=== PATIENT | male | born 1950 | race Caucasian/White ===

== ENCOUNTER 2016-09-18 21:12 | Emergency (ER) | payer OTHER ==
[~2016-09-18] VITALS: Ht 182.9 cm; Wt 82.0 kg
[2016-09-18 22:02] VITALS: BP 166/81; PULSE 86; RESP 16; TEMP 98.3; O2SAT 98
--- NOTE | 2016-09-18 22:17 | PD ---
HPI Chief Complaint: Psychiatric Symptoms Time Seen by Provider: 22:02 Travel History International Travel<30 days: No Contact w/Intl Traveler<30days: No Traveled to known affect area: No History of Present Illness HPI 66yo M with PMH of Parkinson's disease, DM, HTN, dementia from [facility] here for paranoid behavior. As per triage nurse, pt was brought here because pt has been wandering at [facility] and family wants psych evaluation. There are no further paper work from [facility] except for a face sheet. Pt states that he was looking for his nephew and that there was a police next to him and directed him to this hospital. States that he turned around and the police disappeared. Pt is AAOx2. Denies any complaints such as fever, chest pain, sob, n/v, abdominal pain, focal weakness or numbness. PFSH Past Medical History Dementia: Yes Diabetes: Yes Patient Takes Glucophage: No Parkinson's Disease: Yes Immunizations Current: Yes Tetanus Vaccination: Unknown Influenza Vaccination: No Social History Alcohol Use: No Tobacco Use: No Substance Use: No Allergies-Medications (Allergen,Severity, Reaction): Coded Allergies: No Known Allergies (Unverified , 09/18/16) Reported Meds & Prescriptions Reported Meds & Active Scripts Active Active Prescriptions or Reported Medications Unobtainable Review of Systems Except as stated in HPI: all other systems reviewed are Neg Physical Exam Narrative GENERAL: 66yo M not in distress. SKIN: Focused skin assessment warm/dry. HEAD: Atraumatic. Normocephalic. EYES: Pupils equal and round. No scleral icterus. No injection or drainage. ENT: No nasal bleeding or discharge. Mucous membranes pink and moist. NECK: Trachea midline. No JVD. CARDIOVASCULAR: Regular rate and rhythm. No murmur appreciated. RESPIRATORY: No accessory muscle use. Clear to auscultation. Breath sounds equal bilaterally. GASTROINTESTINAL: Abdomen soft, non-tender, nondistended. MUSCULOSKELETAL: No obvious deformities. No clubbing. No cyanosis. No edema. NEUROLOGICAL: Awake and alert. No obvious cranial nerve deficits. Motor grossly within normal limits. PSYCHIATRIC: Inappropriate mood and affect; poor insight and judgment. Data Data Last Documented VS Vital Signs Date Time Temp Pulse Resp B/P Pulse Ox O2 Delivery O2 Flow Rate FiO2 09/18/16 22:02 98.3 86 16 166/81 98 Orders Complete Blood Count With Diff (09/18/16 22:11) Comprehensive Metabolic Panel (09/18/16 22:11) Thyroid Stimulating Hormone (09/18/16 22:11) Psych Screen (09/18/16 22:11) Drug Screen, Random Urine (09/18/16 22:11) Ct Brain W/O Iv Contrast(Rout) (09/18/16 ) Thyroxine (T4) (09/18/16 22:25) Labs Laboratory Tests Test 09/18/16 22:25 Urine Opiates Screen NEG Urine Barbiturates Screen NEG Urine Amphetamines Screen NEG Urine Benzodiazepines Screen POS Urine Cocaine Screen NEG Urine Cannabinoids Screen NEG White Blood Count 6.1 TH/MM3 Red Blood Count 3.47 MIL/MM3 Hemoglobin 10.2 GM/DL Hematocrit 29.6 % Mean Corpuscular Volume 85.3 FL Mean Corpuscular Hemoglobin 29.3 PG Mean Corpuscular Hemoglobin 34.3 % Concent Red Cell Distribution Width 15.4 % Platelet Count 263 TH/MM3 Mean Platelet Volume 8.0 FL Neutrophils (%) (Auto) 72.5 % Lymphocytes (%) (Auto) 18.3 % Monocytes (%) (Auto) 7.6 % Eosinophils (%) (Auto) 0.7 % Basophils (%) (Auto) 0.9 % Neutrophils # (Auto) 4.4 TH/MM3 Lymphocytes # (Auto) 1.1 TH/MM3 Monocytes # (Auto) 0.5 TH/MM3 Eosinophils # (Auto) 0.0 TH/MM3 Basophils # (Auto) 0.1 TH/MM3 CBC Comment DIFF FINAL Differential Comment Sodium Level 144 MEQ/L Potassium Level 3.7 MEQ/L Chloride Level 108 MEQ/L Carbon Dioxide Level 30.5 MEQ/L Anion Gap 6 MEQ/L Blood Urea Nitrogen 5 MG/DL Creatinine 0.83 MG/DL Estimat Glomerular Filtration 92 ML/MIN Rate Random Glucose 90 MG/DL Calcium Level 8.6 MG/DL Total Bilirubin 0.6 MG/DL Aspartate Amino Transf 22 U/L (AST/SGOT) Alanine Aminotransferase 9 U/L (ALT/SGPT) Alkaline Phosphatase 165 U/L Total Protein 5.5 GM/DL Albumin 2.7 GM/DL Thyroxine (T4) 9.7 MCG/DL Thyroid Stimulating Hormone 6.190 uIU/ML 3rd Gen [facility] Medical Decision Making Medical Screen Exam Complete: Yes Emergency Medical Condition: Yes Differential Diagnosis Paranoid schizophrenia vs. delirium vs. dementia vs. electrolyte abnormality vs. dehydration Narrative Course 66yo M was brought in for evaluation from [facility]. There is a copy of discharge report from 09/02/16 from [facility] that has a list of diagnoses on that piece of paper. Diagnoses include Parkinson's disease, unspecified dementia without behavioral disturbance, hereditary and idiopathic neuropathy. Pt only states he has parkinsons and some tremors. Labs reviewed, no leukocytosis. H/H low at 10.2/29.6. Unknown baseline. TSH elevated but T4 normal. Alk phos elevated. This is the first time pt has been here so I obtain a CT brain because he seems bizarre. CT brain showed no acute intracranial abnormality. Chronic lacunar infarction involving the left thalamus. Utox positive benzo. VS stable. Pt has dementia and is here alone, states he wants to find his nephew. I am Garcia Acting him because I do not feel that he can leave on his own without psych evaluation. Diagnosis Primary Impression: Dementia Qualified Code: F03.91 - Dementia with behavioral disturbance, unspecified dementia type Scripts Unable to Obtain Active Prescriptions or Reported Meds Iman Rico DO September 18, 2016 22:17
[2016-09-18 22:52] LABS: AUTOMATED NEUTROPHIL # 4.4 TH/MM3 (1.8-7.7); BASOPHIL # 0.1 TH/MM3 (0-0.2); BASOPHIL % 0.9 % (0.0-2.0); EOSINOPHIL % 0.7 % (0.0-4.0); HEMATOCRIT 29.6 % (39.0-51.0); HEMO FLAGS DIFF FINAL; LYMPH % 18.3 % (9.0-44.0); LYMPHOCYTE # 1.1 TH/MM3 (1.0-4.8); MEAN CELL VOLUME 85.3 FL (80.0-100.0); MEAN CORPUSCULAR HEMOGLOBIN 29.3 PG (27.0-34.0); MEAN CORPUSCULAR HGB CONC 34.3 % (32.0-36.0); MONO % 7.6 % (0.0-8.0); NEUT % 72.5 % (16.0-70.0); PLATELET COUNT 263 TH/MM3 (150-450); RED BLOOD COUNT 3.47 MIL/MM3 (4.50-5.90); RED CELL DISTRIBUTION WIDTH 15.4 % (11.6-17.2); WHITE BLOOD COUNT 6.1 TH/MM3 (4.0-11.0)
--- NOTE | 2016-09-18 22:54 | RADRPT ---
EXAM DATE/TIME: 09/18/2016 22:43 [place] COMPARISON: No previous studies available for comparison. INDICATIONS : Altered mental status. RADIATION DOSE: 43.04 CTDIvol (mGy) MEDICAL HISTORY : Dementia. Parkinsons. Diabetes. SURGICAL HISTORY : None. ENCOUNTER: Initial ACUITY: 1 day PAIN SCALE: 0/10 LOCATION: cranial TECHNIQUE: Multiple contiguous axial images were obtained of the head. Using automated exposure control and adj ustment of the mA and/or kV according to patient size, radiation dose was kept as low as reasonably a chievable to obtain optimal diagnostic quality images. FINDINGS: CEREBRUM: Lacunar infarction is seen involving the left thalamus. The ventricles are normal for age. No eviden ce of midline shift, mass lesion, hemorrhage or acute infarction. No extra-axial fluid collections a re seen. POSTERIOR FOSSA: The cerebellum and brainstem are intact. The 4th ventricle is midline. The cerebellopontine angle i s unremarkable. EXTRACRANIAL: The visualized portion of the orbits is intact. SKULL: The calvaria is intact. No evidence of skull fracture. CONCLUSION: 1. No acute intracranial abnormality. 2. Chronic lacunar infarction involving the left thalamus. Andrés Schwab Jr., MD on September 18, 2016 at 22:50 Board Certified Radiologist. This report was verified electronically.
[2016-09-18 23:04] LABS: BARBITURATES, URINE NEG (NEG)
[2016-09-18 23:19] LABS: AMPHETAMINE, URINE NEG (NEG); COCAINE, URINE NEG (NEG)
[2016-09-18 23:38] LABS: ALKALINE PHOSPHATASE 165 U/L (45-117); ALT (GPT) 9 U/L (12-78); ANION GAP 6 MEQ/L (5-15); AST (GOT) 22 U/L (15-37); BICARBONATE 30.5 MEQ/L (21.0-32.0); BLOOD UREA NITROGEN 5 MG/DL (7-18); CHLORIDE 108 MEQ/L (98-107); GLOMERULAR FILTRATION RATE 92 ML/MIN (>89); POTASSIUM 3.7 MEQ/L (3.5-5.1); SODIUM (NA) 144 MEQ/L (136-145); TOTAL BILIRUBIN ADULT 0.6 MG/DL (0.2-1.0)
[2016-09-19 00:22] LABS: THYROXINE (T4) 9.7 MCG/DL (4.5-12.1)
[2016-09-19 03:13] VITALS: BP 190/85; PULSE 81; RESP 19; O2SAT 96
[2016-09-19 06:29] VITALS: BP 158/66; PULSE 64; RESP 19; O2SAT 97
[2016-09-19 11:21] VITALS: BP 154/82; PULSE 89; RESP 17; O2SAT 99
--- NOTE | 2016-09-19 14:06 | PD ---
History of Present Illness Chief Complaint: Psychiatric Symptoms Time Seen by Provider: 13:00 Travel History International Travel<30 Days: No Contact w/Intl Traveler<30days: No Known affected area: No Legal Status Legal Status: Garcia Act Garcia Act Signed By: Dorothy Garcia Act Comment: CERTIFICATE OF PROFESSIONAL INITIATEING INVOLUNTARY EXAMINATION09/19/16@0051 History of Present Illness: 66-year-old man with Parkinson's dementia Radha acted by [place] ED physician for wandering behavior and dementia. Garcia act also states that physician does not feel the patient can live on his own. The patient is apparently residing in [facility], an assisted living facility, named by the attending ED physician. He is not suicidal, homicidal, violent, oppositional, etc. He does have an obvious dementia which is felt to be moderate. He does continue to require care but obviously he has been receiving care at [facility]. The patient's nephew and niece were contacted and they want the patient to have a thorough evaluation. However, this physician does not feel the patient needs to be admitted for a thorough evaluation and recommended the niece and nephew take the patient to Dr. Lito Austin, local neurologist. This physician feels Mr. Joel is most likely baseline regarding his cognitive abilities and psychotropic medicine adjustment will not significantly alter his disease course. PFSH Past Medical History Dementia: Yes Diabetes: Yes Patient Takes Glucophage: No Parkinson's Disease: Yes Immunizations Current: Yes Tetanus Vaccination: Unknown Influenza Vaccination: No Psychiatric History Psychiatric History Hx Psychiatric Treatment: [facility] History of Inpatient Treatment: No Social History Hx Alcohol Use: No Hx Tobacco Use: No Hx Substance Use: No Hx of Substance Use Treatment: No Allergies-Medications (Allergen,Severity, Reaction): Coded Allergies: No Known Allergies (Unverified , 09/18/16) Reported Meds & Prescriptions Reported Meds & Active Scripts Active Active Prescriptions or Reported Medications Unobtainable Review of Systems ROS Limitations: Poor Historian Except as stated in HPI: all other systems reviewed are Neg Exam Exam Limitations: Poor Historian Alert: Yes [place]: Person Mood: Calm Affect: Restricted Speech: Slurred Eye Contact: Normal Memory Intact: Immediate Insight/Judgement Impaired but likely baseline. MDM Medical Decision Making Medical Record Reviewed: Yes Assessment/Plan Garcia act being lifted and patient being sent home. The patient is not suicidal or homicidal and does have people to help care for him. He can be evaluated and treated in a less restrictive environment, by a outpatient neurologist. Orders Complete Blood Count With Diff (09/18/16 22:11) Comprehensive Metabolic Panel (09/18/16 22:11) Thyroid Stimulating Hormone (09/18/16 22:11) Psych Screen (09/18/16 22:11) Drug Screen, Random Urine (09/18/16 22:11) Ct Brain W/O Iv Contrast(Rout) (09/18/16 ) Thyroxine (T4) (09/18/16 22:25) Diet Regular Basic (09/19/16 Breakfast) Diet Regular Basic (09/19/16 Lunch) Results Vital Signs Date Time Temp Pulse Resp B/P Pulse Ox O2 Delivery O2 Flow Rate FiO2 09/19/16 11:21 89 17 154/82 99 Room Air 09/19/16 06:29 64 19 158/66 97 Room Air 09/19/16 03:13 81 19 190/85 96 Room Air 09/18/16 22:02 98.3 86 16 166/81 98 Laboratory Tests Test 09/18/16 22:25 Urine Opiates Screen NEG Urine Barbiturates Screen NEG Urine Amphetamines Screen NEG Urine Benzodiazepines Screen POS Urine Cocaine Screen NEG Urine Cannabinoids Screen NEG White Blood Count 6.1 Red Blood Count 3.47 Hemoglobin 10.2 Hematocrit 29.6 Mean Corpuscular Volume 85.3 Mean Corpuscular Hemoglobin 29.3 Mean Corpuscular Hemoglobin 34.3 Concent Red Cell Distribution Width 15.4 Platelet Count 263 Mean Platelet Volume 8.0 Neutrophils (%) (Auto) 72.5 Lymphocytes (%) (Auto) 18.3 Monocytes (%) (Auto) 7.6 Eosinophils (%) (Auto) 0.7 Basophils (%) (Auto) 0.9 Neutrophils # (Auto) 4.4 Lymphocytes # (Auto) 1.1 Monocytes # (Auto) 0.5 Eosinophils # (Auto) 0.0 Basophils # (Auto) 0.1 CBC Comment DIFF FINAL Differential Comment Sodium Level 144 Potassium Level 3.7 Chloride Level 108 Carbon Dioxide Level 30.5 Anion Gap 6 Blood Urea Nitrogen 5 Creatinine 0.83 Estimat Glomerular Filtration 92 Rate Random Glucose 90 Calcium Level 8.6 Total Bilirubin 0.6 Aspartate Amino Transf 22 (AST/SGOT) Alanine Aminotransferase 9 (ALT/SGPT) Alkaline Phosphatase 165 Total Protein 5.5 Albumin 2.7 Thyroxine (T4) 9.7 Thyroid Stimulating Hormone 6.190 3rd Gen Diagnosis Primary Impression: Dementia Prescriptions Unable to Obtain Active Prescriptions or Reported Meds Problem Qualifiers Primary Impression: Dementia Qualified Code: F03.91 - Dementia with behavioral disturbance, unspecified dementia type Ankit Martinez MD Sep 19, 2016 14:06
[2016-09-19 14:59] VITALS: BP_SYST 181; BP_SYST 96; BP_DIAS 20; BP_DIAS 85; O2SAT 98
[2016-09-19 17:40] VITALS: BP_SYST 181; BP_SYST 98; BP_DIAS 85
== END 2016-09-19 18:46 | disposition home or self-care (01) ==
LOC: NEPD 21:12 → NEPJ 09-19 18:46
DX: F03.90 Unspecified dementia, unspecified severity, without behavioral disturbance, psychotic disturbance, mood disturbance, and anxiety (principal)
CPT/HCPCS: 70450; 80053; 80307; 84436; 84443; 85025; 99284